=== PATIENT | female | born 1960 | race African-American/Black ===

== ENCOUNTER 2023-05-13 17:46 | Emergency (ER) | payer OTHER ==
[~2023-05-13] VITALS: Ht 165.1 cm; Wt 66.2 kg
[2023-05-13] MEDS ORDERED: KETOROLAC TROMETHAMINE INJ 30 MG/ML VIAL ONE (18:26)
[2023-05-13] MEDS ORDERED: LIDOCAINE 5% (PATCH) 1 EA PATCH TP ONE (18:26)
[2023-05-13] MEDS ORDERED: oxyCODONE/APAP (5/325 MG) 1 UDTAB TABLET ONE (18:26)
[2023-05-13] MEDS ORDERED: oxyCODONE/APAP (5/325 MG) 1 UDTAB TABLET PO ONE (18:30)
[2023-05-13] MEDS ORDERED: LIDOCAINE 5% (PATCH) 1 EA PATCH TP SCH (18:30)
[2023-05-13] MEDS ORDERED: KETOROLAC TROMETHAMINE INJ 30 MG/ML VIAL IM ONE (18:30)
[2023-05-13] MEDS ORDERED: OXYC-128 PO ×2 (20:41→21:40)
[2023-05-13] MEDS ORDERED: AMOX500C2 PO (21:49)
[2023-05-13 23:41] VITALS: BP 158/89; TEMP 97.9; O2SAT 98
== END 2023-05-13 23:42 | disposition home or self-care (01) ==
LOC: EDBD 18:19 → ER 18:19
DX: M54.50 Low back pain, unspecified (principal); K08.89 Other specified disorders of teeth and supporting structures; I10 Essential (primary) hypertension; E11.9 Type 2 diabetes mellitus without complications; F20.9 Schizophrenia, unspecified; Z20.822 Contact with and (suspected) exposure to COVID-19
CPT/HCPCS: 99284; 87426; 96372; 93005; J1885; C9803

== ENCOUNTER 2024-04-15 08:16 | Emergency (ER) | payer OTHER ==
[~2024-04-15] VITALS: Ht 165.1 cm; Wt 56.7 kg
[~2024-04-15 08:16] MED LIST: AMOX500C2 PO; OXYC-128 PO
[2024-04-15 08:29] VITALS: BP 149/97; TEMP 98.3; O2SAT 98
[2024-04-15] MEDS ORDERED: KETOROLAC TROMETHAMINE 15 MG/ML VIAL ONE (08:58)
[2024-04-15] MEDS ORDERED: IBUP-1955 PO (09:21)
[2024-04-15] MEDS ORDERED: AMOX-430 PO (09:21)
[2024-04-15] MEDS: KETOROLAC TROMETHAMINE 15 MG/ML VIAL IM ONE (09:30)
== END 2024-04-15 09:33 | disposition home or self-care (01) ==
LOC: ER 08:16
DX: K03.2 Erosion of teeth (principal); K02.9 Dental caries, unspecified; G89.29 Other chronic pain; M54.50 Low back pain, unspecified; I10 Essential (primary) hypertension; E11.9 Type 2 diabetes mellitus without complications; Z86.59 Personal history of other mental and behavioral disorders
CPT/HCPCS: 99283; 96372; J1885